=== PATIENT | male | born 1970 | race Two or more races ===

== ENCOUNTER 2019-06-03 07:21 | Emergency (ER) | payer MEDICARE, MEDICAID ==
[~2019-06-03] VITALS: Ht 182.9 cm; Wt 104.3 kg
[2019-06-03 07:34] VITALS: BP 131/78
--- NOTE | 2019-06-03 07:44 | NUR ---
ED Nurse Note: Patient walked in to ER c/o bilaterally swolen legs. States drinking a lot of alcohol, it is painful to walk. Patient presented calm, AAO x4, VSS at this time, skin is dry, warm to touch.
[2019-06-03] MEDS ORDERED: Bacitracin Oint UD TOPIC ONE (07:45)
[2019-06-03] MEDS ORDERED: TRUFORM COMPRE1 EACH MC (08:06)
[2019-06-03] MEDS ORDERED: IBUPROFEN600 MG ORAL (08:06)
[2019-06-03] MEDS ORDERED: BACITRACIN15 GM TOPIC (08:06)
[2019-06-03 08:20] VITALS: BP 131/78
--- NOTE | 2019-06-03 08:21 | NUR ---
ED Nurse Note: Pt cleared by health care Provider for discharge. DC instructions/prescription was given and explained to pt and verbalized understanding of teachings. All medical deviecs such as ID band removed. Pt is AAO x4, ambulatory and left with all personal belongings.
--- NOTE | 2019-06-03 08:58 | Emergency Room Report ---
History of Present Illness General Chief Complaint: Pain Source: Patient Present Illness HPI 48-year-old male presents ED for evaluation. Patient walked in complaining of bilateral foot pain and swelling. States that he walks a lot every day. Is on his feet most of the day. Also notes blisters to his bottom of his feet. Pain is dull, 7 out of 10, nonradiating. Denies any fall or injury. No other aggravating relieving factors. Denies any other associated symptoms Allergies: Coded Allergies: No Known Allergies (Unverified , 06/03/19) Patient History Past Medical History: none Past Surgical History: none Pertinent Family History: none Social History: Denies: smoking, alcohol use, drug use Immunizations: UTD Reviewed Nursing Documentation: PMH: Agreed; PSxH: Agreed Nursing Documentation-PMH Past Medical History: No Stated History Review of Systems All Other Systems: negative except mentioned in HPI Physical Exam Vital Signs Date Time Temp Pulse Resp B/P (MAP) Pulse Ox O2 Delivery O2 Flow Rate FiO2 06/03/19 07:27 97.5 66 16 131/78 (95) 96 Room Air Sp02 EP Interpretation: reviewed, normal General Appearance: no apparent distress, alert, GCS 15, non-toxic Head: normocephalic Eyes: bilateral eye normal inspection, bilateral eye PERRL ENT: normal ENT inspection Neck: normal inspection Respiratory: normal inspection Cardiovascular #1: normal inspection Gastrointestinal: normal inspection Rectal: deferred Genitourinary: no CVA tenderness Musculoskeletal: back normal, normal range of motion, gait/station normal, tender - bilateral feet, swelling Neurologic: alert, motor strength/tone normal, oriented x3, sensory intact, responsive, speech normal Psychiatric: normal inspection Skin: other - blisters to bottom of feet bilaterally. no discharge/erythema Lymphatic: normal inspection Medical Decision Making Diagnostic Impression: Primary Impression: Blister of foot Qualified Codes: S90.829A - Blister (nonthermal), unspecified foot, initial encounter Additional Impression: Peripheral edema ER Course Hospital Course 48 yo M presents to ED with swelling/pain to both feet Differential diagnoses include: Cellulitis, dermatitis, insect bite, abscess Clinical course Patient placed on stretcher. After initial history, physical exam reveals a male in no acute distress. On exam there is blisters on the bottom of both feet. No signs of infection. No discharge. There is some mild 1+ pitting edema to both feet and ankles. No calf tenderness. accuCheck within normal limits. Discussed findings with patient. Wounds clean. Bacitracin and dressings applied to both feet. Will discharge to home. I will provide PMD referrals. Diagnosis - blister of foot, peripheral edema stable and discharged to home with prescription for Motrin, bacitracin. Instructed to followup with PMD. Instructed return to ED if symptoms recur or worsen Last Vital Signs Date Time Temp Pulse Resp B/P (MAP) Pulse Ox O2 Delivery O2 Flow Rate FiO2 06/03/19 08:20 97.5 98 16 131/78 96 Room Air Status: improved Disposition: HOME, SELF-CARE Condition: Stable Scripts Ibuprofen* (MOTRIN*) 600 Mg Tablet 600 MG ORAL Q8H PRN for For Pain, #30 TAB 0 Refills Prov: Monster Garvin MD 06/03/19 Comp.stocking,Knee,Regular,Lrg (TRUFORM COMPRESSION STOCKING) 1 Each Each EACH , #2 Prov: Monster Garvin MD 06/03/19 Bacitracin (Bacitracin) 28.4 Gm Oint...g. 1 APPLIC TOPIC THREE TIMES A DAY, #28.4 GM Prov: Monster Garvin MD 06/03/19 Referrals: NOT CHOSEN IPA/,REFERRING (PCP) [facility] Patient Instructions: Blisters Monster Garvin MD Jun 03, 2019 08:58
== END 2019-06-03 08:21 | disposition home or self-care (01) ==
LOC: EMR 07:45
DX: S90.822A Blister (nonthermal), left foot, initial encounter (principal); S90.821A Blister (nonthermal), right foot, initial encounter; X58.XXXA Exposure to other specified factors, initial encounter; Y92.9 Unspecified place or not applicable; R60.0 Localized edema
CPT/HCPCS: 82962; 99282